=== PATIENT | male | born 2000 | race Caucasian/White ===

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

== ENCOUNTER 2018-03-10 23:19 | Emergency (ER) | payer OTHER ==
[2018-03-10] MEDS ORDERED: CEPHALEXIN 250 MG CAPSULE PO ONE (23:46)
--- NOTE | 2018-03-10 23:49 | ED Physician Documentation ---
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 denies: itchy Identified Cause?: No Context: Food Exposure: none Context: Other Exposure: spider bite (possibly). denies: bee sting, wasp sting , ant bite - ROS CONST: none CVS/RESP: none EYES/ENT: none GI/: none MS/SKIN/LYMPH: none. denies: neck pain, joint pain, leg swelling, rash NEURO/PSYCH: none. denies: headache, fainting - PAST HX Past History: other (ADHD) Surgeries/Procedures: No Immunizations: UTD Allergies/Adverse Reactions: Allergies Allergy/AdvReac Type Severity Reaction Status Date / Time amoxicillin [Amoxicillin] Allergy Intermediate Anaphylaxis Verified 03/10/18 23: 39 Penicillins Allergy Unknown Verified 03/10/18 23:39 Home Medications: Ambulatory Orders Medication Instructions Recorded Clonidine HCl 0.2 mg PO D u2 01/04/17 Lisdexamfetamine Dimesylate 40 mg PO D 03/10/18 [Vyvanse] - SOCIAL HX Smoking History: non-smoker Alcohol Use: none - FAMILY HX Family History: none - VITAL SIGNS Vital Signs: Vital Signs Temp Pulse Resp BP Pulse Ox 98.6 F 104 H 18 151/83 98 03/10/18 23:19 03/10/18 23:19 03/10/18 23:19 03/10/18 23:19 03/10/18 23:19 - REVIEWED ASSESSMENTS Nursing Assessment Reviewed: Yes Vitals Reviewed: Yes ED Results Lab/Radiology - Orders Orders: ED Orders Category Date Time Status Cephalexin [Keflex] Med 03/10/18 23:46 Once 1,000 mg PO NOW ONE Abscess Physical Exam - EXAM General Appearance: mild distress Skin: warm,dry. No: cyanotic, diaphoretic, pallid, jaundiced Location: other (rt lateral buttocks). No: generalized Symptoms: warmth, swelling (very slight) Extremities: non-tender, nml ROM, no edema Neck: trachea midline, no swelling Respiratory: no resp distress, chest non-tender, breath sounds normal. No: wheezes, rales CVS: reg. rate & rhythm, heart sounds nml Abdomen: non-tender Neuro/Psych: oriented x3, motor nml, sensation nml, mood/affect nml Discharge Clincal Impression: non MRSA abscess Referrals: Pablo Quezada MD [Primary Care Provider] - 2 Days Comments: home sont shower q noct meds f/u prn if not better. has slight possidble opcn allergy-wautioned re poss cross allergy w/ keflex Condition: Good Disposition: 01 HOME, SELF-CARE Decision to Admit: NO Decision Time: 23:55
[2018-03-10 23:53] VITALS: BP 151/83
== END 2018-03-11 00:05 | disposition home or self-care (01) ==
LOC: ED 23:19
DX: L02.31 Cutaneous abscess of buttock (principal)
CPT/HCPCS: 99283

== ENCOUNTER 2019-04-24 10:54 | Outpatient (CLI) | payer OTHER ==
[2019-04-24 11:29] LABS: A1C 5.2 % (<5.7)
[2019-04-24 12:07] LABS: eGFR (Non-African) > 60
[2019-04-24 12:08] LABS: HDL 37 mg/dL (>40)
== END 2019-04-24 10:56 ==
LOC: LAB 10:54
PROVIDERS: ATTEND Family Medicine
DX: I10 Essential (primary) hypertension (principal); R63.5 Abnormal weight gain; R73.9 Hyperglycemia, unspecified
CPT/HCPCS: 36415; 80053; 80061; 83036; 84439; 84443; 84481

== ENCOUNTER 2019-06-11 09:09 | Outpatient (CLI) | payer OTHER ==
[2019-06-12 09:24] LABS: eGFR (Non-African) > 60
== END 2019-06-11 09:12 ==
LOC: LABRHC 09:09
PROVIDERS: ATTEND Family Medicine
DX: I10 Essential (primary) hypertension (principal)
CPT/HCPCS: 80048